=== PATIENT | female | born 1990 | race Caucasian/White ===

== ENCOUNTER 2021-12-29 16:10 | Emergency (ER) | payer MEDICAID ==
[~2021-12-29] VITALS: Ht 154.9 cm; Wt 69.4 kg
[2021-12-29 16:15] VITALS: BP_SYST 122
[2021-12-29 18:34] LABS: BASOPHILS % (AUTO) 0.1 % (0.0-2.0); EOSINOPHILS # (AUTO) 0.1 K/uL (0.0-0.4); EOSINOPHILS % (AUTO) 0.8 % (0.0-4.0); HEMATOCRIT 36.9 % (36-48); HEMOGLOBIN 12.7 g/dL (12.0-16.0); LYMPHOCYTES # (AUTO) 1.8 K/uL (1.0-5.5); LYMPHOCYTES % (AUTO) 17.5 % (20.5-51.5); MEAN CORPUSCULAR HEMOGLOBIN 31 pg (27-31); MEAN CORPUSCULAR HGB CONC 34 % (32-36); MEAN CORPUSCULAR VOLUME 89 fL (79.0-98.0); MONOCYTES # (AUTO) 0.5 K/uL (0.0-1.0); MONOCYTES % (AUTO) 4.8 % (1.7-9.3); NEUTROPHILS # (AUTO) 7.9 K/uL (1.8-7.7); NEUTROPHILS % (AUTO) 76.8 % (40.0-70.0); PLATELET COUNT (AUTO) 232 K/uL (130-430); RED BLOOD CELL COUNT(AUTO) 4.16 MIL/uL (4.2-6.2); RED CELL DISTRIBUTION WIDTH 13.9 % (9.0-15.0); WHITE BLOOD COUNT (AUTO) 10.2 K/uL (4.8-10.8)
[2021-12-29 19:25] LABS: BILIRUBIN,URINE NEGATIVE (NEGATIVE); COLOR,URINE YELLOW (YELLOW); GLUCOSE,URINE NEGATIVE (NEGATIVE); KETONES,URINE NEGATIVE (NEGATIVE); LEUKOCYTE ESTERASE ,URINE 1+ (NEGATIVE); NITRITE, URINE NEGATIVE (NEGATIVE); PROTEIN URINE NEGATIVE (NEGATIVE); UROBILINOGEN,URINE 0.2 (0.2-1.0)
[2021-12-29 19:26] LABS: BLOOD, URINE TRACE (NEGATIVE)
[2021-12-29 19:27] LABS: CLARITY/URINE SLIGHTLY HAZY (CLEAR)
[2021-12-29 19:32] LABS: BACTERIA,URINE FEW /HPF (None Seen); RBC,URINE 0-3 /HPF (0-3)
[2021-12-29 19:33] LABS: MUCUS,URINE None Seen /LPF (None Seen)
[2021-12-29] MEDS ORDERED: CEPH-548 PO (20:29)
[2021-12-29 21:41] VITALS: BP_SYST 119
== END 2021-12-29 21:41 | disposition home or self-care (01) ==
LOC: SED 16:10
DX: O20.0 Threatened abortion (principal); Z3A.10 10 weeks gestation of pregnancy; O23.41 Unspecified infection of urinary tract in pregnancy, first trimester
CPT/HCPCS: 36415; 76802; 81000; 81025; 84702; 85025; 86886; 86900; 86901; 87086; 99284

== ENCOUNTER 2022-03-07 22:15 | Observation (INO) | payer MEDICAID ==
[~2022-03-07 22:15] MED LIST: CEPH-548 PO
== END 2022-03-08 01:00 | disposition home or self-care (01) ==
LOC: SPU 22:15
PROVIDERS: ADMIT Obstetrics & Gynecology; ATTEND Obstetrics & Gynecology
DX: O26.892 Other specified pregnancy related conditions, second trimester (principal); M54.50 Low back pain, unspecified; Z3A.20 20 weeks gestation of pregnancy; W18.39XA Other fall on same level, initial encounter; Y93.89 Activity, other specified; Y92.099 Unspecified place in other non-institutional residence as the place of occurrence of the external cause
CPT/HCPCS: 76805-TC; 81002; G0378; G0379

== ENCOUNTER 2022-04-02 16:53 | Observation (INO) | payer MEDICAID ==
[~2022-04-02] VITALS: Ht 154.9 cm; Wt 71.2 kg
[2022-04-02] MEDS ORDERED: LR 500 ML IV ONE (17:45)
[2022-04-02 19:23] LABS: BASOPHILS % (AUTO) 0.2 % (0.0-2.0); EOSINOPHILS % (AUTO) 0.4 % (0.0-4.0); HEMATOCRIT 31.6 % (36-48); LYMPHOCYTES # (AUTO) 0.8 K/uL (1.0-5.5); LYMPHOCYTES % (AUTO) 9.8 % (20.5-51.5); MEAN CORPUSCULAR HEMOGLOBIN 31 pg (27-31); MEAN CORPUSCULAR HGB CONC 35 % (32-36); MEAN CORPUSCULAR VOLUME 90 fL (79.0-98.0); MONOCYTES # (AUTO) 0.5 K/uL (0.0-1.0); MONOCYTES % (AUTO) 6.1 % (1.7-9.3); NEUTROPHILS # (AUTO) 7.1 K/uL (1.8-7.7); NEUTROPHILS % (AUTO) 83.5 % (40.0-70.0); PLATELET COUNT (AUTO) 208 K/uL (130-430); RED BLOOD CELL COUNT(AUTO) 3.53 MIL/uL (4.2-6.2); RED CELL DISTRIBUTION WIDTH 14.5 % (9.0-15.0); WHITE BLOOD COUNT (AUTO) 8.5 K/uL (4.8-10.8)
[2022-04-02 19:30] LABS: CALCIUM 8.8 mg/dL (8.4-11.0); CREATININE 0.5 mg/dL (0.55-1.30); POTASSIUM 3.9 mmol/L (3.5-5.1)
[2022-04-02 19:37] LABS: ALBUMIN 2.4 g/dL (3.4-4.8); TOTAL BILIRUBIN 0.2 mg/dL (0.0-1.0)
[2022-04-02 19:46] LABS: BILIRUBIN,URINE NEGATIVE (NEGATIVE); CLARITY/URINE CLEAR (CLEAR); COLOR,URINE YELLOW (YELLOW); GLUCOSE,URINE NEGATIVE (NEGATIVE); KETONES,URINE 2+ (NEGATIVE); LEUKOCYTE ESTERASE ,URINE 1+ (NEGATIVE); NITRITE, URINE NEGATIVE (NEGATIVE); PROTEIN URINE NEGATIVE (NEGATIVE); UROBILINOGEN,URINE 0.2 (0.2-1.0)
[2022-04-02 19:49] LABS: BLOOD, URINE TRACE (NEGATIVE)
[2022-04-02 19:50] LABS: BACTERIA,URINE FEW /HPF (None Seen); MUCUS,URINE None Seen /LPF (None Seen); RBC,URINE NONE SEEN /HPF (0-3)
== END 2022-04-02 21:10 | disposition home or self-care (01) ==
LOC: SPU 16:53
PROVIDERS: ADMIT Obstetrics & Gynecology; ATTEND Obstetrics & Gynecology
DX: O62.9 Abnormality of forces of labor, unspecified (principal); Z3A.24 24 weeks gestation of pregnancy; Z91.040 Latex allergy status
CPT/HCPCS: 96360; 96361; 80053; 81000; 85025; 87086; 36415; 76815; 81002; G0378

== ENCOUNTER 2022-06-23 14:23 | Observation (INO) | payer MEDICAID ==
[~2022-06-23] VITALS: Ht 154.9 cm; Wt 73.5 kg
[2022-06-23] MEDS ORDERED: ONDA-8 TL (22:10)
[2022-06-23] MEDS ORDERED: NITR-85 PO (22:52)
== END 2022-06-23 18:25 | disposition home or self-care (01) ==
LOC: SPU 14:23
PROVIDERS: ADMIT Obstetrics & Gynecology; ATTEND Obstetrics & Gynecology
DX: O26.893 Other specified pregnancy related conditions, third trimester (principal); R10.2 Pelvic and perineal pain; R19.7 Diarrhea, unspecified; Z3A.37 37 weeks gestation of pregnancy
CPT/HCPCS: G0378

== ENCOUNTER 2022-06-23 18:36 | Emergency (ER) | payer MEDICAID ==
[~2022-06-23] VITALS: Ht 154.9 cm; Wt 72.6 kg
[2022-06-23 18:36] VITALS: BP_SYST 114
--- NOTE | 2022-06-23 18:36 | NUR ---
BROUGHT IN FRONT OB DEPT AND PLACED IN BED #3, TRIAGED. REPORT GIVEN TO LUCAS
--- NOTE | 2022-06-23 20:41 | NUR ---
pt is resting at bedside waiting for
[2022-06-23] MEDS ORDERED: NACL 0.9% 1,000 ML IV ONE (21:15)
[2022-06-23] MEDS ORDERED: ONDANSETRON HCL 4 MG/2 ML VIAL IVP ONE (21:15)
[2022-06-23 21:27] LABS: HEMATOCRIT 34.8 % (36-48); MEAN CORPUSCULAR HEMOGLOBIN 31 pg (27-31); MEAN CORPUSCULAR HGB CONC 35 % (32-36); MEAN CORPUSCULAR VOLUME 91 fL (79.0-98.0); PLATELET COUNT (AUTO) 176 K/uL (130-430); RED BLOOD CELL COUNT(AUTO) 3.84 MIL/uL (4.2-6.2); RED CELL DISTRIBUTION WIDTH 13.9 % (9.0-15.0); WHITE BLOOD COUNT (AUTO) 8.2 K/uL (4.8-10.8)
[2022-06-23 21:44] LABS: CALCIUM 7.9 mg/dL (8.4-11.0); CREATININE 0.68 mg/dL (0.55-1.30)
[2022-06-23 21:48] LABS: BAND % (MANUAL) 6 % (0-6); MONOCYTES % (MANUAL) 2 % (0-11)
[2022-06-23 21:49] LABS: BASOPHILS % (MANUAL) 0 % (0-2); EOSINOPHILS % (MANUAL) 0 % (0-7); LYMPHOCYTES % (MANUAL) 4 % (20-46)
[2022-06-23] MEDS ORDERED: ONDA-8 TL (22:10)
[2022-06-23 22:36] LABS: BILIRUBIN,URINE NEGATIVE (NEGATIVE); BLOOD, URINE NEGATIVE (NEGATIVE); CLARITY/URINE CLEAR (CLEAR); COLOR,URINE YELLOW (YELLOW); GLUCOSE,URINE NEGATIVE (NEGATIVE); KETONES,URINE NEGATIVE (NEGATIVE); LEUKOCYTE ESTERASE ,URINE 3+ (NEGATIVE); NITRITE, URINE NEGATIVE (NEGATIVE); PROTEIN URINE NEGATIVE (NEGATIVE); UROBILINOGEN,URINE 0.2 (0.2-1.0)
[2022-06-23 22:44] LABS: BACTERIA,URINE FEW /HPF (None Seen); RBC,URINE NONE SEEN /HPF (0-3); YEAST,URINE Rare /HPF (None Seen)
[2022-06-23 22:45] LABS: MUCUS,URINE None Seen /LPF (None Seen)
[2022-06-23] MEDS ORDERED: NITR-85 PO (22:52)
[2022-06-23 23:37] VITALS: BP_SYST 111
--- NOTE | 2022-06-23 23:38 | NUR ---
Patient given written and verbal discharge instructions and verbalizes understanding. ER MD discussed with patient the results and treatment provided. Patient in stable condition. ID arm band removed. IV catheter removed intact and dressing applied, no active bleeding. Rx of antibotic and anti nausea given. Patient educated on pain management and to follow up with PMD. Pain Scale 0/10. Opportunity for questions provided and answered. Medication side effect fact sheet provided.
== END 2022-06-23 23:38 | disposition home or self-care (01) ==
LOC: SED 18:36
DX: O99.613 Diseases of the digestive system complicating pregnancy, third trimester (principal); K92.9 Disease of digestive system, unspecified; O23.43 Unspecified infection of urinary tract in pregnancy, third trimester; N39.0 Urinary tract infection, site not specified; Z3A.35 35 weeks gestation of pregnancy; Z91.040 Latex allergy status; Z79.899 Other long term (current) drug therapy
CPT/HCPCS: 99283; 96360; 85027; 80048; 81000; 85007; 87086; 36415; J7030; J2405

== ENCOUNTER 2022-07-03 13:31 | Observation (INO) | payer MEDICAID ==
[~2022-07-03] VITALS: Ht 154.9 cm; Wt 73.0 kg
[~2022-07-03 13:31] MED LIST changes: +NITR-85 PO; +ONDA-8 TL
== END 2022-07-03 15:28 | disposition home or self-care (01) ==
LOC: SPU 13:31
PROVIDERS: ADMIT Obstetrics & Gynecology; ATTEND Obstetrics & Gynecology
DX: O26.853 Spotting complicating pregnancy, third trimester (principal); O62.9 Abnormality of forces of labor, unspecified; O34.63 Maternal care for abnormality of vagina, third trimester; N89.8 Other specified noninflammatory disorders of vagina; Z3A.37 37 weeks gestation of pregnancy
CPT/HCPCS: 81002; G0378

== ENCOUNTER 2022-07-04 10:37 | Observation (INO) | payer MEDICAID | END 2022-07-04 12:50 | disposition home or self-care (01) | LOC: SPU 10:37 | PROVIDERS: ADMIT Obstetrics & Gynecology; ATTEND Obstetrics & Gynecology | DX: O62.9 Abnormality of forces of labor, unspecified (principal); O46.93 Antepartum hemorrhage, unspecified, third trimester; Z3A.37 37 weeks gestation of pregnancy | CPT/HCPCS: 59025; 81002; G0378; G0379 ==

== ENCOUNTER 2022-07-06 01:25 | Inpatient (IN) | payer MEDICAID ==
[~2022-07-06] VITALS: Ht 154.9 cm; Wt 73.0 kg
[2022-07-06] MEDS ORDERED: OXYTOCIN/0.9 % SODIUM CHLORIDE 1,000 ML IV SCH (02:15)
[2022-07-06] MEDS ORDERED: LR 1,000 ML IV SCH (02:15)
[2022-07-06 03:38] VITALS: BP_SYST 129
[2022-07-06 03:41] LABS: BASOPHILS # (AUTO) 0.2 K/uL (0.0-0.2); BASOPHILS % (AUTO) 1.5 % (0.0-2.0); EOSINOPHILS # (AUTO) 0.1 K/uL (0.0-0.4); EOSINOPHILS % (AUTO) 0.7 % (0.0-4.0); HEMATOCRIT 34.7 % (36-48); HEMOGLOBIN 11.7 g/dL (12.0-16.0); LYMPHOCYTES # (AUTO) 2.1 K/uL (1.0-5.5); MEAN CORPUSCULAR HEMOGLOBIN 31 pg (27-31); MEAN CORPUSCULAR HGB CONC 34 % (32-36); MEAN CORPUSCULAR VOLUME 91 fL (79.0-98.0); MONOCYTES # (AUTO) 0.7 K/uL (0.0-1.0); MONOCYTES % (AUTO) 5.3 % (1.7-9.3); NEUTROPHILS % (AUTO) 76.5 % (40.0-70.0); PLATELET COUNT (AUTO) 178 K/uL (130-430); RED BLOOD CELL COUNT(AUTO) 3.83 MIL/uL (4.2-6.2); RED CELL DISTRIBUTION WIDTH 14.1 % (9.0-15.0)
[2022-07-06] MEDS ORDERED: NALOXONE HCL 0.4 MG/ML AMP (NARCAN) ONE (03:51)
[2022-07-06] MEDS ORDERED: LIGHT MINERAL OIL 10 ML VIAL MC ONE (03:51)
[2022-07-06] MEDS ORDERED: LIDOCAINE PF 1% 30ML(POUR BTL) INJ ONE (03:51)
[2022-07-06] MEDS: MORPHINE SULFATE 10 MG/ML VIAL IVP PRN ×3 (04:30→13:21)
[2022-07-06] MEDS ORDERED: OXYTOCIN/0.9 % SODIUM CHLORIDE 1,000 ML IV ONE (18:45)
[2022-07-06] MEDS ORDERED: LANOLIN 7 GM OINT. TP PRN (18:45)
[2022-07-06] MEDS ORDERED: DERMOPLAST SPRAY TP PRN (18:45)
[2022-07-06] MEDS ORDERED: WITCH HAZEL LEAF 1 MED.PAD MED.PAD TP PRN (18:45)
[2022-07-06] MEDS ORDERED: IBUPROFEN 600 MG TABLET PO ONE (19:15)
[2022-07-07 08:20] LABS: HEMOGLOBIN 10.3 g/dL (12.0-16.0)
[2022-07-07] MEDS: DOCUSATE SODIUM 100 MG CAPSULE PO SCH (09:03)
[2022-07-07] MEDS: IBUPROFEN 600 MG TABLET PO SCH ×4 (12:19→23:55)
[2022-07-08] MEDS: IBUPROFEN 600 MG TABLET PO SCH ×2 (05:34→12:24)
[2022-07-08] MEDS: DOCUSATE SODIUM 100 MG CAPSULE PO SCH (09:00)
== END 2022-07-08 18:02 | disposition home or self-care (01) | DRG 560 ==
LOC: OBSVTOIN 01:25 → SPU 01:25
PROVIDERS: ADMIT Obstetrics & Gynecology; ATTEND Obstetrics & Gynecology
PROC: 10E0XZZ Delivery of Products of Conception, External Approach (ICD-10-PCS; principal; 2022-07-06)
DX: O80 Encounter for full-term uncomplicated delivery (principal); Z37.0 Single live birth; Z20.822 Contact with and (suspected) exposure to COVID-19; Z88.8 Allergy status to other drugs, medicaments and biological substances; Z79.899 Other long term (current) drug therapy; Z91.040 Latex allergy status; Z3A.37 37 weeks gestation of pregnancy
CPT/HCPCS: 36415; 81002; 85018; 85025; 86592; 86886; 86900; 86901; J2001; J2270; J2310; J2590; J7120

== ENCOUNTER 2022-08-25 08:34 | Inpatient (IN) | payer MEDICAID ==
[~2022-08-25] VITALS: Ht 154.9 cm; Wt 63.5 kg
[2022-08-25 08:59] VITALS: BP_SYST 125
--- NOTE | 2022-08-25 09:02 | NUR ---
Patient triaged and placed in waiting room. VSS and patient appears in no acute distress at this time. Accompanied by FAMILY, awaiting available bed, and MD notified of need for MSE.
--- NOTE | 2022-08-25 09:13 | NUR ---
ER DR. SWEET EXAMINING PT IN TRIAGE
[2022-08-25] MEDS ORDERED: MORPHINE 4 MG INJ. 4 MG/ML VIAL IVP ONE ×2 (09:30→13:30)
[2022-08-25] MEDS ORDERED: ONDANSETRON HCL 4 MG/2 ML VIAL IVP ONE (09:30)
[2022-08-25] MEDS ORDERED: NACL 0.9% 1,000 ML IV ONE (09:30)
[2022-08-25 09:44] LABS: CALCIUM 9.1 mg/dL (8.4-11.0); CREATININE 0.93 mg/dL (0.55-1.30)
[2022-08-25 09:49] LABS: ALBUMIN 3.3 g/dL (3.4-4.8)
[2022-08-25 10:01] LABS: BASOPHILS % (AUTO) 0.1 % (0.0-2.0); EOSINOPHILS % (AUTO) 0.2 % (0.0-4.0); HEMATOCRIT 37.8 % (36-48); HEMOGLOBIN 12.6 g/dL (12.0-16.0); LYMPHOCYTES # (AUTO) 1.1 K/uL (1.0-5.5); LYMPHOCYTES % (AUTO) 14.5 % (20.5-51.5); MEAN CORPUSCULAR HEMOGLOBIN 30 pg (27-31); MEAN CORPUSCULAR HGB CONC 33 % (32-36); MEAN CORPUSCULAR VOLUME 90 fL (79.0-98.0); MONOCYTES # (AUTO) 0.4 K/uL (0.0-1.0); MONOCYTES % (AUTO) 6.1 % (1.7-9.3); NEUTROPHILS # (AUTO) 5.8 K/uL (1.8-7.7); NEUTROPHILS % (AUTO) 79.1 % (40.0-70.0); PLATELET COUNT (AUTO) 269 K/uL (130-430); RED BLOOD CELL COUNT(AUTO) 4.18 MIL/uL (4.2-6.2); RED CELL DISTRIBUTION WIDTH 13.2 % (9.0-15.0); WHITE BLOOD COUNT (AUTO) 7.4 K/uL (4.8-10.8)
--- NOTE | 2022-08-25 11:06 | NUR ---
PT BIB IN BY AMBULATED TO ROOM 7 FROM HOME. PT C/O OF ABD RUQ PAIN FOR BEGINNING 7 DAYS AGO. PT RATES PAIN 10/10 AND DESCRIBES PAIN PALACIOS AND THROBBING. PT STATES PAIN RADIATES FROM ABD TOWARD BACK. PT STATES HAD DIARRHEA 2 DAYS AGO AND VOMITED CLEAR LIQUID. PT STATES PAIN WAKES HER FROM HER SLEEP. PT STATES HAS NOT URGENCY TO URINATE BUT WHEN DOES FEELS A BURNING SENSATION. VSS ON TELE MONITOR. SAFETY PRECAUTIONS IN PLACE. WILL CONTINUE TO MONITOR.
[2022-08-25 11:08] LABS: BILIRUBIN,URINE 2+ (NEGATIVE); BLOOD, URINE 3+ (NEGATIVE); COLOR,URINE YELLOW (YELLOW); GLUCOSE,URINE NEGATIVE (NEGATIVE); KETONES,URINE TRACE (NEGATIVE); LEUKOCYTE ESTERASE ,URINE TRACE (NEGATIVE); NITRITE, URINE POSITIVE (NEGATIVE); PH,URINE 5.5 (5.0-8.0); PROTEIN URINE 1+ (NEGATIVE)
[2022-08-25 11:10] LABS: CLARITY/URINE HAZY (CLEAR)
[2022-08-25 11:14] LABS: BACTERIA,URINE MANY /HPF (None Seen)
[2022-08-25 11:15] LABS: MUCUS,URINE 1+ /LPF (None Seen)
[2022-08-25] MEDS ORDERED: cefTRIAXone 1 GM in D5W 50 ML IV ONE (11:30)
[2022-08-25] MEDS ORDERED: cefTRIAXone 1 GM VIAL ONE (11:50)
[2022-08-25] MEDS ORDERED: POTASSIUM CHLORIDE 20 MEQ in D5/0.45 NS 1,000 ML IV SCH (14:00)
--- NOTE | 2022-08-25 14:08 | NUR ---
Admit bed requested Patient will be admitted to care of . Admitted to MEDSURG unit. Diagnosis ACUTE CHOLECYSTITIS Inpatient (Yes or No) Y Observation (Yes or No) N Orientation concerns or request close to nursing station (Yes or No) N Covid Status NEG On vent or bipap N Isolation requirements N Needs a sitter N From Home (Yes or if No enter name of facility) Y Requires Dialysis (Yes or No) N Med Rec Completed (Yes of No) Y
--- NOTE | 2022-08-25 14:14 | NUR ---
PT STATES SHE IS NOT CURRENTLY TAKING ANY MEDICATIONS AT HOME. MED REC UPDATED.
[2022-08-25] MEDS: MORPHINE 4 MG INJ. 4 MG/ML VIAL IVP PRN ×2 (16:06→19:01)
--- NOTE | 2022-08-25 16:13 | NUR ---
REPORT GIVEN TO BRENNA DURAND, UPDATED ON STATUS, LABS AND VITALS.
--- NOTE | 2022-08-25 16:30 | NUR ---
Admission Note Received patient from ER with diagnosis of acute cholecystitis. Initial Plan of Care discussed-patient verbalized understanding. Oriented to room, call light, pain management and safety. Admission process initiated. Patient states tolerable pain at this time.
--- NOTE | 2022-08-25 16:30 | NUR ---
Patient will be admitted to care of DR CHAVARRIA. Admitted to unit. Will go to room . Belongings list completed. Complete and up to date summary report printed. SBAR report to be given at bedside with opportunity for questions.
[2022-08-25] MEDS: POTASSIUM CHLORIDE 20 MEQ in D5/0.45 NS 1,000 ML IV SCH (18:04)
--- NOTE | 2022-08-25 18:54 | NUR ---
CLOSING NOTE Patient laying in bed at this time. She states that her pain is increasing. IV site intact, fluids ongoing. Call light within reach. All safety precautions observed. at bedside at this time.
[2022-08-25 19:00] VITALS: BP_SYST 111
--- NOTE | 2022-08-25 19:00 | NUR ---
MEDICATED FOR PAIN Given morphine IV per complaint of 05/17 pain.
--- NOTE | 2022-08-25 19:15 | NUR ---
change of shift.pt.presents quiescent affect;calm,resting.pt.presents iv access intact;location:rt.antecubital.diet status order:npo.npo diet status re-iterated to the pt.pt.comprehension status satisfactory.pt.capable to reposition self/ambulate un-assisted.call light/telephone w/in access of the pt.
[2022-08-25 20:00] VITALS: BP_SYST 111
--- NOTE | 2022-08-25 20:00 | NUR ---
pt.assessed.v/s assessed values wnl.pain mgx controlled.no c/o nausea.iv access intact;patent.pt.capable to reposition self. levaquin;abx ivpb initial dose administered.call light/telephone w/in access of the pt.
--- NOTE | 2022-08-25 22:00 | NUR ---
pt.assessed.pt.quiescent;somnolent.per flacc pain mgx pt.absent facial grimaces/body posturing.iv access intact;patent. pt.capable to reposition self.call light/telephone w/in access of the pt.
--- NOTE | 2022-08-26 | NUR ---
pt.assessed.v/s assessed values wnl. no c/o pain,nausea.iv access intact;patent.pt.capable to reposition self.call light/ telephone w/in access of the pt.
[2022-08-26 00:13] VITALS: BP_SYST 128
--- NOTE | 2022-08-26 02:00 | NUR ---
pt.assessed.pt.requested medication;pain.morphine;4mg ivp administered.to assess the efficacy of the pain medication per pain mgx protocol.pt.capable to reposition self.iv access intact;patent.call light/telephone w/in access of the pt.
[2022-08-26] MEDS: MORPHINE 4 MG INJ. 4 MG/ML VIAL IVP PRN ×4 (02:05→22:40)
--- NOTE | 2022-08-26 04:00 | NUR ---
pt.assessed.pt.quiescent.no c/o pain,nausea.iv access intact;patent.pt.ambulated to the restroom,returned to bed unassisted. gait assessed gait status wnl.call light/telephone placed w/in access of the pt.
--- NOTE | 2022-08-26 06:00 | NUR ---
pt.assessed.pt.quiescent.no c/o pain,nausea.iv access intact;patent.pt.capable to reposition self.call light/telephone w/in access of the pt.
[2022-08-26] MEDS: POTASSIUM CHLORIDE 20 MEQ in D5/0.45 NS 1,000 ML IV SCH ×2 (06:01→21:03)
[2022-08-26 07:44] LABS: ALBUMIN 2.5 g/dL (3.4-4.8); CALCIUM 8.6 mg/dL (8.4-11.0); CREATININE 0.77 mg/dL (0.55-1.30)
[2022-08-26 07:52] LABS: BASOPHILS % (AUTO) 0.1 % (0.0-2.0); EOSINOPHILS % (AUTO) 0.1 % (0.0-4.0); HEMATOCRIT 34.3 % (36-48); HEMOGLOBIN 11.6 g/dL (12.0-16.0); LYMPHOCYTES # (AUTO) 1.4 K/uL (1.0-5.5); LYMPHOCYTES % (AUTO) 9.1 % (20.5-51.5); MEAN CORPUSCULAR HEMOGLOBIN 31 pg (27-31); MEAN CORPUSCULAR HGB CONC 34 % (32-36); MEAN CORPUSCULAR VOLUME 91 fL (79.0-98.0); MONOCYTES # (AUTO) 1.1 K/uL (0.0-1.0); MONOCYTES % (AUTO) 6.9 % (1.7-9.3); NEUTROPHILS # (AUTO) 13.1 K/uL (1.8-7.7); NEUTROPHILS % (AUTO) 83.8 % (40.0-70.0); PLATELET COUNT (AUTO) 235 K/uL (130-430); RED BLOOD CELL COUNT(AUTO) 3.78 MIL/uL (4.2-6.2); RED CELL DISTRIBUTION WIDTH 13.1 % (9.0-15.0); WHITE BLOOD COUNT (AUTO) 15.6 K/uL (4.8-10.8)
[2022-08-26 08:43] LABS: TOTAL BILIRUBIN 2.3 mg/dL (0.0-1.0)
[2022-08-26 08:46] LABS: INR 1.1 (0.8-1.2); PROTHROMBIN TIME 11.4 SECS (9.5-12.5)
[2022-08-26 11:00] VITALS: BP_SYST 114
[2022-08-26] MEDS: ONDANSETRON HCL 4 MG/2 ML VIAL IVP PRN (11:25)
[2022-08-26] MEDS: HYDROcodone/ACETAMIN 7.5-325 MG TAB PO PRN (14:10)
[2022-08-26 15:40] VITALS: BP_SYST 113
[2022-08-26 20:00] VITALS: BP_SYST 98
[2022-08-27] VITALS (7 sets, daily range): BP systolic 98–126
[2022-08-27] MEDS: ONDANSETRON HCL 4 MG/2 ML VIAL IVP PRN ×2 (04:58→20:59)
[2022-08-27] MEDS: MORPHINE 4 MG INJ. 4 MG/ML VIAL IVP PRN ×3 (04:59→20:59)
[2022-08-27 06:27] LABS: BASOPHILS % (AUTO) 0.2 % (0.0-2.0); EOSINOPHILS % (AUTO) 0.4 % (0.0-4.0); HEMATOCRIT 31.7 % (36-48); LYMPHOCYTES # (AUTO) 1.5 K/uL (1.0-5.5); LYMPHOCYTES % (AUTO) 13.5 % (20.5-51.5); MEAN CORPUSCULAR HEMOGLOBIN 31 pg (27-31); MEAN CORPUSCULAR HGB CONC 35 % (32-36); MEAN CORPUSCULAR VOLUME 90 fL (79.0-98.0); MONOCYTES # (AUTO) 0.8 K/uL (0.0-1.0); MONOCYTES % (AUTO) 7.6 % (1.7-9.3); NEUTROPHILS # (AUTO) 8.5 K/uL (1.8-7.7); NEUTROPHILS % (AUTO) 78.3 % (40.0-70.0); PLATELET COUNT (AUTO) 219 K/uL (130-430); RED BLOOD CELL COUNT(AUTO) 3.52 MIL/uL (4.2-6.2); RED CELL DISTRIBUTION WIDTH 13.5 % (9.0-15.0); WHITE BLOOD COUNT (AUTO) 10.8 K/uL (4.8-10.8)
[2022-08-27 06:37] LABS: ALBUMIN 2.4 g/dL (3.4-4.8); CALCIUM 8.5 mg/dL (8.4-11.0); CREATININE 0.63 mg/dL (0.55-1.30)
--- NOTE | 2022-08-27 06:58 | NUR ---
CLOSING NOTES: Patient is in bed resting no s/s of distress is noted at this time. Chest rise is even and unlabored on RA. Patient is able to make needs known, denies pain at this time, and has call light is within reach. All current shift needs have been met, patient is stable and safety measures are in place as per protocol. Will differ care.
[2022-08-27 07:54] LABS: TOTAL BILIRUBIN 4.5 mg/dL (0.0-1.0)
[2022-08-27] MEDS: HYDROcodone/ACETAMIN 7.5-325 MG TAB PO PRN ×2 (08:07→15:56)
[2022-08-27] MEDS: POTASSIUM CHLORIDE 20 MEQ in D5/0.45 NS 1,000 ML IV SCH ×2 (08:10→20:48)
--- NOTE | 2022-08-27 10:11 | NUR ---
CONSULTATION PAGED/CALLED Reason for Consultation: [] HYPERBILIRUBINEMIA Person Who was Notified: [] [place] Consulting Physician: [] DR SANCHEZ Concrete Pipe Machine Operator Specialty: [] GI Ordering Physician: [] BRENDAN DAO
[2022-08-27] MEDS ORDERED: KCL 20 mEq in D5/0.45NS 1000mL 1,000 ML IV ONE (21:03)
[2022-08-28] VITALS: BP_SYST 138
--- NOTE | 2022-08-28 01:49 | NUR ---
PATIENT SLEEPING EASILY AWAKENED UPON AROUSAL. A&OX 4 ABLE TO MAKE NEEDS KNOWN. VERBALLY RESPONSIVE. ADMITTED WITH DX: ACUTE CHOLEYSTITIS. PAIN MANAGEMENT PROVIDED AND CONTROLLED WITH PRN PAIN MEDICATION AND NON PHARMACOLOGICAL INTERVENTIONS FOR PAIN. PAIN 2/10 AT ITS BEST ABD MID SHARP PAIN INTERMITTENT. PATIENT ALSO CONTROLLED GI SYMPTOMS WITH NAUSEA MEDICATION PRN AND EFFECTIVE. NO N/V/D. BREATHING EVEN AND NON LABORED. NO SOB OR DYSPNEA. CONTINUED ON IV ATB. NO ADVERSE REACTIONS NOTED. IV SITE DRY AND INTACT. CONTINUED ON IVF D51/2NS WITH KCL 20MEQ 2 80ML/HR. TOLERATING IVF WELL. CONTINUED ON NPO DIET. UP AD MARIA DE JESUS. PATIENT IS CONTINENT B&B WITH BATHROOM PRIVILEGES. DENIES ANY PAIN DURING URINATION. SKIN DRY AND INTACT. PATIENT SELF REPOSITIONS IN BED REMINDED Q2H. SAFETY MEASURES OBSERVED. VS WNL. CALL LIGHT IN REACH. BED LOCKED IN LOWEST POSITION. CONTINUE PLAN OF CARE. PATIENT REMINDED TO USE CALL LIGHT IN NEED OF ASSISTANCE.
[2022-08-28 04:00] VITALS: BP_SYST 123
[2022-08-28] MEDS: MORPHINE 4 MG INJ. 4 MG/ML VIAL IVP PRN ×6 (04:11→23:59)
--- NOTE | 2022-08-28 06:56 | NUR ---
REPORT GIVEN TO ONCOMING NURSE. PATIENT STABLE AND AFEBRILE. PAIN MEDICATED WITH MS PRN ORDERED FOR MIDDLE ABD PAIN 8/10 ACHING SHARP ACUTE. MEDICATION EFFECTIVE AND HELPFUL PATIENT STATED PAIN HAS DECREASED TO 2/10. PATIENT HAS NO N/V/D NO GI SYMPTOMS NOTED AT THIS TIME. IV SITE INTACT AND IVF ORDERED. PATIENT REMAINS NPO AND TOLERATING IVF. BREATHING EVEN AND NON LABORED. NO SOB OR DYSPNEA. PATIENT RESTING IN BED. VS WNL. CALL LIGHT IN REACH. ALL NEEDS MET. SAFETY MEASURES OBSERVED. CONTINUE PLAN OF CARE.
--- NOTE | 2022-08-28 07:30 | NUR ---
OPENING NOTE PT RESTING IN BED WITH NON-LABORED AND EVEN BREATHING. IVF RUNNING ORDERED. NO IV INFILTRATION OR INFECTION NOTED. BED IS LOW AND AT LOCKED POSITION. SAFETY PRECAUTION IN PLACE. ENCOURAGE TO USE CALL LIGHT FOR ASSISTANCE. WILL CONT TO MONITOR.
[2022-08-28 07:58] LABS: BASOPHILS % (AUTO) 0.3 % (0.0-2.0); EOSINOPHILS # (AUTO) 0.1 K/uL (0.0-0.4); EOSINOPHILS % (AUTO) 1.6 % (0.0-4.0); HEMATOCRIT 32.2 % (36-48); LYMPHOCYTES # (AUTO) 1.2 K/uL (1.0-5.5); LYMPHOCYTES % (AUTO) 18.8 % (20.5-51.5); MEAN CORPUSCULAR HEMOGLOBIN 31 pg (27-31); MEAN CORPUSCULAR HGB CONC 34 % (32-36); MEAN CORPUSCULAR VOLUME 90 fL (79.0-98.0); MONOCYTES # (AUTO) 0.4 K/uL (0.0-1.0); MONOCYTES % (AUTO) 6.6 % (1.7-9.3); NEUTROPHILS # (AUTO) 4.7 K/uL (1.8-7.7); NEUTROPHILS % (AUTO) 72.7 % (40.0-70.0); PLATELET COUNT (AUTO) 271 K/uL (130-430); RED BLOOD CELL COUNT(AUTO) 3.57 MIL/uL (4.2-6.2); RED CELL DISTRIBUTION WIDTH 13.4 % (9.0-15.0)
[2022-08-28 08:00] VITALS: BP_SYST 110
[2022-08-28 08:20] LABS: ALBUMIN 2.3 g/dL (3.4-4.8); CALCIUM 8.6 mg/dL (8.4-11.0); CREATININE 0.58 mg/dL (0.55-1.30); TOTAL BILIRUBIN 1.6 mg/dL (0.0-1.0)
[2022-08-28 08:21] LABS: WHITE BLOOD COUNT (AUTO) 6.4 K/uL (4.8-10.8)
[2022-08-28] MEDS: POTASSIUM CHLORIDE 20 MEQ in D5/0.45 NS 1,000 ML IV SCH ×2 (08:57→20:10)
--- NOTE | 2022-08-28 10:30 | NUR ---
NOTES; PT VERBALIZES THAT SHE HAS 1.5-MONTH-OLD BABY VIA NATURAL AT HOME. DENIES ANY ACUTE DISTRESS. IVF RUNNING ORDERED. WILL CONT TO MONITOR.
[2022-08-28 12:00] VITALS: BP_SYST 118
--- NOTE | 2022-08-28 12:30 | NUR ---
PROVIDED PAIN MED PER PT'S REQUEST.
[2022-08-28] MEDS: ONDANSETRON HCL 4 MG/2 ML VIAL IVP PRN ×2 (15:10→21:50)
[2022-08-28 16:00] VITALS: BP_SYST 112
--- NOTE | 2022-08-28 16:00 | NUR ---
OBTAINED CONSENTS FOR POSSIBLE PROCEDURE TMR.
--- NOTE | 2022-08-28 16:25 | NUR ---
Dietitian Recommendations * Consider advance to Clear liquid diet then progress to Soft (low-fiber/bland), Low-Fat diet following Sx LP, MS, RD Please refer to Nutrition Assessment for details. Addendum: 08/28/22 at [address] Amended: Links added.
--- NOTE | 2022-08-28 18:48 | NUR ---
CLOSING NOTE PT RESTING IN BED WITH NON-LABORED AND REGULAR BREATHING. IFV RUNNING ORDERED. NO IV INFILTRATION OR INFECTION NOTED. DENIES ANY PAIN OR DISCOMFORT. CONT. NPO STATUS.BED IS LOCKED AND AT LOW POSITION. SAFETY PRECAUTION IN PLACED. WILL ENDORSE CARE TO ONCOMING NATIONAL DEDICATED TRUCK DRIVER NURSE.
[2022-08-29 00:12] VITALS: BP_SYST 120
[2022-08-29] MEDS: MORPHINE 4 MG INJ. 4 MG/ML VIAL IVP PRN ×4 (07:09→22:46)
--- NOTE | 2022-08-29 07:40 | NUR ---
PROCEDURE TMR AFTERNOON; CALLED THAT HE COULD NOT FIND ASSISTANCE FOR SURGERY TODAY, POSSIBILITY TOMORROW AFTERNOON PER DR. CHAVARRIA.
[2022-08-29 08:00] VITALS: BP_SYST 110
--- NOTE | 2022-08-29 08:00 | NUR ---
NPO AFTER MIDNIGHT.
[2022-08-29 09:01] LABS: ALBUMIN 2.6 g/dL (3.4-4.8); CALCIUM 9.1 mg/dL (8.4-11.0); CREATININE 0.63 mg/dL (0.55-1.30); TOTAL BILIRUBIN 1.1 mg/dL (0.0-1.0)
[2022-08-29 09:06] LABS: BASOPHILS % (AUTO) 0.2 % (0.0-2.0); EOSINOPHILS # (AUTO) 0.1 K/uL (0.0-0.4); EOSINOPHILS % (AUTO) 1.9 % (0.0-4.0); HEMATOCRIT 34.8 % (36-48); HEMOGLOBIN 11.6 g/dL (12.0-16.0); LYMPHOCYTES # (AUTO) 1.4 K/uL (1.0-5.5); LYMPHOCYTES % (AUTO) 24.8 % (20.5-51.5); MEAN CORPUSCULAR HEMOGLOBIN 30 pg (27-31); MEAN CORPUSCULAR HGB CONC 34 % (32-36); MEAN CORPUSCULAR VOLUME 90 fL (79.0-98.0); MONOCYTES # (AUTO) 0.3 K/uL (0.0-1.0); MONOCYTES % (AUTO) 5.7 % (1.7-9.3); NEUTROPHILS # (AUTO) 3.7 K/uL (1.8-7.7); NEUTROPHILS % (AUTO) 67.4 % (40.0-70.0); PLATELET COUNT (AUTO) 379 K/uL (130-430); RED BLOOD CELL COUNT(AUTO) 3.85 MIL/uL (4.2-6.2); RED CELL DISTRIBUTION WIDTH 13.4 % (9.0-15.0); WHITE BLOOD COUNT (AUTO) 5.5 K/uL (4.8-10.8)
[2022-08-29] MEDS: POTASSIUM CHLORIDE 20 MEQ in D5/0.45 NS 1,000 ML IV SCH ×2 (10:05→22:08)
--- NOTE | 2022-08-29 11:25 | NUR ---
NOTES; PT VERBALIZES SHE HAS BEEN WALKING TO BATHROOM A FEW TIMES.STEADY GAIT.
[2022-08-29 11:51] VITALS: BP_SYST 119
--- NOTE | 2022-08-29 15:23 | NUR ---
PROVIDED PAIN MEDS FOR ABDOMINAL PAIN
[2022-08-29 16:12] VITALS: BP_SYST 112
--- NOTE | 2022-08-29 19:30 | NUR ---
CLOSING NOTE PT RESTING IN BED WITH NON-LABORED AND EVEN BREATHING. IVF RUNNING ORDERED. NO IV INFILTRATION OR INFECTION NOTED. BED IS LOW AND AT LOCKED POSITION. SAFETY PRECAUTION IN PLACE. ENCOURAGE TO USE CALL LIGHT FOR ASSISTANCE. ENDORSED CARE TO WELFARE MANAGER NURSE.
[2022-08-29] MEDS: HYDROcodone/ACETAMIN 7.5-325 MG TAB PO PRN (21:05)
[2022-08-30 01:12] VITALS: BP_SYST 91
[2022-08-30] MEDS: MORPHINE 4 MG INJ. 4 MG/ML VIAL IVP PRN ×5 (04:12→21:42)
--- NOTE | 2022-08-30 04:17 | NUR ---
c/o severe pain Administered morphine for severe pain as ordered. Reviewed side effects and she verbalized understanding.
[2022-08-30 06:40] LABS: BASOPHILS % (AUTO) 0.2 % (0.0-2.0); EOSINOPHILS # (AUTO) 0.1 K/uL (0.0-0.4); EOSINOPHILS % (AUTO) 2.7 % (0.0-4.0); HEMOGLOBIN 11.8 g/dL (12.0-16.0); LYMPHOCYTES # (AUTO) 1.3 K/uL (1.0-5.5); LYMPHOCYTES % (AUTO) 26.4 % (20.5-51.5); MEAN CORPUSCULAR HEMOGLOBIN 30 pg (27-31); MEAN CORPUSCULAR HGB CONC 34 % (32-36); MEAN CORPUSCULAR VOLUME 90 fL (79.0-98.0); MONOCYTES # (AUTO) 0.3 K/uL (0.0-1.0); MONOCYTES % (AUTO) 7.2 % (1.7-9.3); NEUTROPHILS % (AUTO) 63.5 % (40.0-70.0); PLATELET COUNT (AUTO) 392 K/uL (130-430); RED BLOOD CELL COUNT(AUTO) 3.87 MIL/uL (4.2-6.2); RED CELL DISTRIBUTION WIDTH 13.7 % (9.0-15.0); WHITE BLOOD COUNT (AUTO) 4.8 K/uL (4.8-10.8)
[2022-08-30 07:34] LABS: ALBUMIN 2.5 g/dL (3.4-4.8); CALCIUM 8.8 mg/dL (8.4-11.0); CREATININE 0.56 mg/dL (0.55-1.30)
[2022-08-30 08:00] VITALS: BP_SYST 109
[2022-08-30 10:56] VITALS: BP_SYST 106
[2022-08-30] MEDS: POTASSIUM CHLORIDE 20 MEQ in D5/0.45 NS 1,000 ML IV SCH (13:35)
[2022-08-30 17:24] VITALS: BP_SYST 110
--- NOTE | 2022-08-30 19:26 | NUR ---
Nutrition F/U: Admitting Diagnosis: Acute cholecystitis Reviewed Pertinent Medical/Surgical Hx Medical Record; Patient Medical History Comment: Per EMR review, PMH insignificant. Per EMR review, pt has resolving acute cholecystitis, UTI, and may have passed a CBD stone; plan for lap all versus open all w/ possible intraoperative cholangiogram 08/29 if ophthalmic medical assistant available 08/30: Per MD/RN notes, pt possible lap all tomorrow Subjective Information: RD rounded to patient room and s/w patient at bedside. Pt reports her appetite today has been not well but it is slowly improving. Pt endorses feeling pain after consuming CLD 08/29, but reports her next meal was consumed with less pain. Pt stated after starting CLD, she had the urge to have a BM but did not produce anything. RD inquired if pt had follow-up questions regarding prev RD visit diet education, and pt asked RD to explain the diet progression again. All pt questions were answered by RD. Per EMR review, pt with no BM since admit but soft abdomen and active bowel sounds present. score 21 with no wounds/PIs documented. Pt noted with abdominal non-pitting edema per chart. Patient is now NPO pending surgery tomorrow afternoon. Current Diet Order/Nutrition Support: NPO x 0 days Pertinent Medications: KCl/D5/NS at 80 ml/hr (326 kcal/day), morphine Pertinent Labs: BUN 3 L, BG 114 H, ALT 149 H, ALP 556H Height 5 feet 1 inches Weight 140 pounds/ 63.5kg Body Mass Index 26.45 kg/m2 Usual Weight 140 lbs %UBW 100 %IBW 133 [place]/Adjusted Body Weight 105#/47.7 kg. 114#/51.8 kg Recent Weight Change Yes - +30# during ; dropped back down to pre- wt after labor Weight Status Overweight Gastrointestinal Symptoms Pain after eating Food Allergies No Current % PO N/A - NPO Estimated Energy Expenditure (kcals/day) 8892-1936 (30-35 kcal/kg Adj IBW d/t overwt, planned Sx) Estimated Protein Required (g/day) 62-78 (1.2-1.5 gm/kg Adj IBW d/t overwt, planned Sx) Estimated Fluid Required (l/day) 1.6-1.8 (1 ml/kcal/day for adult maintenance) Problem/Etiology/Signs/Symptoms Increased nutritional needs R/T metabolic demands AEB estimated nutritional requirements for planned Sx (On-going) Expected Outcomes/Goals - Monitor advancement of diet, appetite, and PO intakes w/ goal of pt meeting >50% of estimated nutritional needs, labs trending WNL, normal GI function, and skin integrity/wt maintenance Dietitian Recommendations * Remain NPO, pending scheduled Sx * Consider advance to CLD -> GI Soft (low-fiber/bland), Low-Fat diet following Sx Follow Up Moderate Risk: F/U in 2-3days
--- NOTE | 2022-08-30 19:37 | NUR ---
Dietitian Recommendations * Remain NPO, pending scheduled Sx * Consider advance to CLD -> GI Soft (low-fiber/bland), Low-Fat diet following Sx Please refer to nutrition f/u for details, thanks! Ling Gunn MPH, RDN
[2022-08-30 20:00] VITALS: BP_SYST 102
--- NOTE | 2022-08-30 20:00 | NUR ---
OPENING NOTE- PT AWAKE AND ORIENTED. TOLERATED CLEAR LIQUID DIET. C/O ABDOMINAL PAIN -05/17. MEDICATED MORPHINE 4 MG AND ZOFRAN 4 MG IVP. V/S STABLE AFEBRILE.
[2022-08-31] MEDS: ONDANSETRON HCL 4 MG/2 ML VIAL IVP PRN ×2 (00:48→09:06)
[2022-08-31] MEDS: POTASSIUM CHLORIDE 20 MEQ in D5/0.45 NS 1,000 ML IV SCH ×3 (00:51→20:55)
[2022-08-31] MEDS: MORPHINE 4 MG INJ. 4 MG/ML VIAL IVP PRN ×2 (02:48→09:08)
[2022-08-31 03:47] LABS: BASOPHILS % (AUTO) 0.2 % (0.0-2.0); EOSINOPHILS # (AUTO) 0.1 K/uL (0.0-0.4); EOSINOPHILS % (AUTO) 2.5 % (0.0-4.0); HEMATOCRIT 34.5 % (36-48); HEMOGLOBIN 11.9 g/dL (12.0-16.0); LYMPHOCYTES # (AUTO) 1.1 K/uL (1.0-5.5); LYMPHOCYTES % (AUTO) 21.1 % (20.5-51.5); MEAN CORPUSCULAR HEMOGLOBIN 31 pg (27-31); MEAN CORPUSCULAR HGB CONC 34 % (32-36); MEAN CORPUSCULAR VOLUME 90 fL (79.0-98.0); MONOCYTES # (AUTO) 0.4 K/uL (0.0-1.0); MONOCYTES % (AUTO) 7.5 % (1.7-9.3); NEUTROPHILS # (AUTO) 3.6 K/uL (1.8-7.7); NEUTROPHILS % (AUTO) 68.7 % (40.0-70.0); PLATELET COUNT (AUTO) 390 K/uL (130-430); RED BLOOD CELL COUNT(AUTO) 3.85 MIL/uL (4.2-6.2); RED CELL DISTRIBUTION WIDTH 13.4 % (9.0-15.0); WHITE BLOOD COUNT (AUTO) 5.2 K/uL (4.8-10.8)
[2022-08-31 04:07] LABS: ALBUMIN 2.7 g/dL (3.4-4.8); CALCIUM 9.1 mg/dL (8.4-11.0); CREATININE 0.63 mg/dL (0.55-1.30); TOTAL BILIRUBIN 1.3 mg/dL (0.0-1.0)
[2022-08-31 04:09] LABS: INR 1.1 (0.8-1.2); PROTHROMBIN TIME 11.5 SECS (9.5-12.5)
--- NOTE | 2022-08-31 04:27 | NUR ---
MAINTAINED NPO AFTER MN FOR POSSIBLE LAP CHOLECYSTECTOMY. OBTAINED MRSA, COVID SWAB AND UA. IVF D51/2NS+20 MEQ CKL AT 80 ML/HR. CONSENT AND PREOP CHECK LIST DONE. PENDING CXR IN AM.
[2022-08-31 04:42] LABS: BILIRUBIN,URINE NEGATIVE (NEGATIVE); BLOOD, URINE NEGATIVE (NEGATIVE); CLARITY/URINE CLEAR (CLEAR); COLOR,URINE YELLOW (YELLOW); GLUCOSE,URINE NEGATIVE (NEGATIVE); KETONES,URINE NEGATIVE (NEGATIVE); LEUKOCYTE ESTERASE ,URINE NEGATIVE (NEGATIVE); NITRITE, URINE NEGATIVE (NEGATIVE); PH,URINE 6.5 (5.0-8.0); PROTEIN URINE NEGATIVE (NEGATIVE); UROBILINOGEN,URINE 0.2 (0.2-1.0)
[2022-08-31 08:00] VITALS: BP_SYST 123
--- NOTE | 2022-08-31 09:08 | NUR ---
PAIN MANAGEMENT Patient complaining of pain, 9/10 in her back and abdomen. Patient states pain increased after she ambulated to the restroom. PRN morphine and zofran provided. All needs met at this time and safety checks made.
[2022-08-31 11:33] VITALS: BP_SYST 101
--- NOTE | 2022-08-31 14:48 | NUR ---
PATIENT LEFT FOR OR Patient left for OR via hospital bed with OR nurses. Family spoke with OR nurses at bedside.
[2022-08-31] MEDS ORDERED: CEFAZOLIN 2 GM IVPB PREMIX 50 ML IV ONE (15:11)
[2022-08-31] MEDS ORDERED: NS IRRIG SOLN 1000 ML IR ONE (15:11)
[2022-08-31] MEDS ORDERED: ONDANSETRON HCL 4 MG/2 ML VIAL ONE (15:11)
[2022-08-31] MEDS ORDERED: KETOROLAC TROMETHAMINE 30 MG VIAL ONE (15:11)
[2022-08-31] MEDS ORDERED: ROCURONIUM BROMIDE 10 MG/ML (ZEMURON) ONE (15:11)
[2022-08-31] MEDS ORDERED: SEVOFLURANE 15 MIN GAS INH ONE (15:11)
[2022-08-31] MEDS ORDERED: PROPOFOL 200MG/ 20ML VIAL (DIPRIVAN) IV ONE (15:11)
[2022-08-31] MEDS ORDERED: HYDROmorphone 2 MG/ML VIAL ONE (15:11)
[2022-08-31] MEDS ORDERED: NS 1000 ML IV.SOLN IV ONE (15:11)
[2022-08-31] MEDS ORDERED: METOCLOPRAMIDE HCL 10 MG/2 ML VIAL ONE (15:11)
[2022-08-31] MEDS ORDERED: PHENYLEPHRINE HCL 10 MG/ML VIAL (NEOSYNEPHRINE) ONE (15:11)
[2022-08-31 15:29] LABS: HCG,QUAL RESULT NEGATIVE (NEGATIVE)
[2022-08-31] MEDS ORDERED: BUPIVACAINE LIPOSOME/PF 266 MG/20 ML VIAL INFIL ONE (16:01)
--- NOTE | 2022-08-31 19:28 | NUR ---
CLOSING NOTE Patient remains in PACU. Endorsed to awake overnight counselor nurse.
[2022-08-31 20:00] VITALS: BP_SYST 132
--- NOTE | 2022-08-31 20:00 | NUR ---
RECEIVED PT FROM PACU- S/P LAP CHOLECYSTECTOMY. 4 SMALL ABDOMINAL INCISIONS AND 1 ALEJANDRO ON RLL -DRESSING INTACT. NO S/SX OF BLEEDING. PT AWAKE AND ORIENTED. DENIED PAIN OR NAUSEA. ON EMMANUEL SCD. F/C WITH YELLOW CLEAR URINE. CHANGED IVF TO D51/2S+ 20 MEQ KCL AT 80 ML/HR. V/S STABLE AFEBRILE. O2 SAT 99% ON ROOM AIR. DISCUSSED POST OP CARE- EARLY AMBULATION, CLEAR LIQUID DIET TOLERATE AND USE ICS WHILE AWAKE.
[2022-08-31 20:42] VITALS: BP_SYST 121
[2022-09-01 00:20] VITALS: BP_SYST 116
[2022-09-01] MEDS: MORPHINE 4 MG INJ. 4 MG/ML VIAL IVP PRN ×2 (00:20→05:37)
[2022-09-01 06:14] LABS: BASOPHILS % (AUTO) 0.1 % (0.0-2.0); EOSINOPHILS % (AUTO) 0.5 % (0.0-4.0); HEMATOCRIT 33.1 % (36-48); HEMOGLOBIN 11.3 g/dL (12.0-16.0); LYMPHOCYTES # (AUTO) 1.4 K/uL (1.0-5.5); MEAN CORPUSCULAR HEMOGLOBIN 31 pg (27-31); MEAN CORPUSCULAR HGB CONC 34 % (32-36); MEAN CORPUSCULAR VOLUME 90 fL (79.0-98.0); MONOCYTES # (AUTO) 0.6 K/uL (0.0-1.0); MONOCYTES % (AUTO) 7.3 % (1.7-9.3); NEUTROPHILS # (AUTO) 6.7 K/uL (1.8-7.7); NEUTROPHILS % (AUTO) 76.1 % (40.0-70.0); PLATELET COUNT (AUTO) 351 K/uL (130-430); RED BLOOD CELL COUNT(AUTO) 3.69 MIL/uL (4.2-6.2); RED CELL DISTRIBUTION WIDTH 13.6 % (9.0-15.0); WHITE BLOOD COUNT (AUTO) 8.8 K/uL (4.8-10.8)
[2022-09-01 06:29] LABS: ALBUMIN 2.6 g/dL (3.4-4.8); CALCIUM 8.9 mg/dL (8.4-11.0); CREATININE 0.59 mg/dL (0.55-1.30); TOTAL BILIRUBIN 0.8 mg/dL (0.0-1.0)
--- NOTE | 2022-09-01 06:47 | NUR ---
PT SLEPT WELL. GIVEN MORPHINE 4 MG IVP X 4 BUT HER PAIN IS BETTER THAN SURGERY. ENCOURAGED TI ICS WHILE AWAKE AND AMBULATE. ALEJANDRO DRAINED 20 ML DARK BLOODY. UPDATED PT'S CONDITION TO DR CHAVARRIA THIS AM. WILL D/C F/C IN AM.
--- NOTE | 2022-09-01 07:37 | NUR ---
CHECKED PT'S FINGERSTICK BEFORE MICRONASE ORAL PILL-477 AT 0700AM. ALSO RECEIVED CRITICAL REPORT FROM [facility]UCO[facility] 586. GIVEN MICRONASE 5 MG ORAL ORDER. CALLED AT 07:[address] SCHWARZ'S ANSWERING SERVICE -DR HUMBERTO COOL. WILL REPORT TO AM SHIFT TO F/U.
[2022-09-01 08:00] VITALS: BP_SYST 119
[2022-09-01] MEDS: HYDROcodone/ACETAMIN 7.5-325 MG TAB PO PRN ×2 (10:13→15:37)
[2022-09-01] MEDS: POTASSIUM CHLORIDE 20 MEQ in D5/0.45 NS 1,000 ML IV SCH (11:17)
[2022-09-01] MEDS ORDERED: DOCUSATE SODIUM 100 MG CAPSULE PO PRN (13:00)
[2022-09-01 13:42] VITALS: BP_SYST 108
[2022-09-01 17:15] VITALS: BP_SYST 107
--- NOTE | 2022-09-01 18:45 | NUR ---
pt A/Ox4,vss,ambulatory to bathroom and voided well no problems,c/o abdomen incisional pain,give norco 7.5mg po as prn order for pain and pain with relief after meds given,abdomen has incision x3 sites leodan clean,dry and intact right abdomen with 1 ALEJANDRO drains serosanguinously,dressing changed and instructed pt how to empty ALEJANDRO drain and given teachng for ALEJANDRO drain care.d/c IV d/c instruction and prescription for norco given and explained to pt.leaving via w/c accompanied by her .
== END 2022-09-01 18:00 | disposition home or self-care (01) | DRG 263 ==
LOC: SED 08:34 → SMU 13:56
PROVIDERS: ADMIT Surgery; ATTEND Surgery
PROC: 0FT44ZZ Resection of Gallbladder, Percutaneous Endoscopic Approach (ICD-10-PCS; principal; 2022-08-31 13:30)
DX: K80.00 Calculus of gallbladder with acute cholecystitis without obstruction (principal); G43.909 Migraine, unspecified, not intractable, without status migrainosus; N39.0 Urinary tract infection, site not specified; K82.8 Other specified diseases of gallbladder; Z20.822 Contact with and (suspected) exposure to COVID-19; Z88.8 Allergy status to other drugs, medicaments and biological substances; Z91.040 Latex allergy status
CPT/HCPCS: 36415; 71045; 74181; 76376; 76705; 80053; 81000; 81003; 83690; 84703; 85025; 85610-TC; 85730-TC; 87081; 87086; 88304; 93005; 96361; 96365; 96375; 99285; C1727; C1758; C9290; J0690; J0696; J1170; J1885; J1956; J2270; J2370; J2405; J2704; J2765; J3480; J7030